=== PATIENT | male | born 1960 | race Caucasian/White ===

== ENCOUNTER 2020-05-10 11:58 | Outpatient (REF) | payer MEDICAID, SELFPAY ==
--- NOTE | 2020-05-10 12:36 | XR_ITS ---
EXAMINATION: XR CERVICAL SPINE CLINICAL INFORMATION: Cervicalgia COMPARISON: None TECHNIQUE: 5 views of the cervical spine were obtained. FINDINGS: There is no fracture or subluxation. Vertebral body height and alignment is maintained. Disc space narrowing of C5-C6 and C6-C7 with small endplate osteophytes. There appears to be mild bony neuroforaminal narrowing on the left at these levels. The atlantoaxial joint is well aligned. The dens is intact. The prevertebral soft tissues are unremarkable. The lung apices are clear. XR/XR cervical spine 4V IMPRESSION: Degenerative changes at C5-C6 and C6-C7 with associated left bony neuroforaminal narrowing at these levels.
[2020-05-10 12:59] LABS: MANUAL DIFF FLAG NO
[2020-05-10 13:10] LABS: Basophils Percent Auto 0.3 % (0-2); Eosinophils Absolute Auto 0.1 X10*3/uL (0.0-0.4); Eosinophils Percent Auto 1.3 % (0-4); Hemoglobin 14.8 g/dl (14.0-18.0); Imm Gran Abs Auto 0.03 X10*3/uL (0.00-0.03); Imm Gran Pct Auto 0.4 % (0.0-0.4); Lymphocytes Absolute Auto 2.3 X10*3/uL (1.2-4.9); Lymphocytes Percent Auto 28.4 % (20-40); Mean Corpuscular HGB Conc 33.6 g/dl (31.0-36.0); Mean Corpuscular Hemoglobin 30.7 pg (27.0-33.0); Mean Corpuscular Volume 91.3 fL (80-98); Mean Platelet Volume 11.6 fL (9.4-12.4); Monocytes Absolute Auto 0.7 X10*3/uL (0.1-1.2); Monocytes Percent Auto 9.3 % (2-11); Neutrophils Absolute Auto 4.8 X10*3/uL (2.0-8.3); Neutrophils Percent Auto 60.3 % (45-73); Platelet Count 193 X10*3/uL (160-400); Red Blood Count 4.82 X10*6/uL (4.60-5.80); Red Cell Distribution Width 12.9 % (11.0-16.0)
[2020-05-10 13:44] LABS: Alanine Aminotransferase 51 U/L (0-40); Albumin Level 4.3 g/dL (3.5-5.0); Alkaline Phosphatase 62 U/L (39-117); Anion Gap 12 (12-20); Aspartate Amino Transferase 58 U/L (5-37); Bilirubin Direct < 0.2 mg/dL (0.0-0.5); Bilirubin Total 0.5 mg/dL (0.0-1.0); Blood Urea Nitrogen 21 mg/dL (9-16); Calcium 9.3 mg/dL (8.4-10.2); Carbon Dioxide 27 mmol/L (22-29); Chloride 105 mmol/L (96-108); Cholesterol 251 mg/dL; Estimated Glomerular Filt Rate > 60; Glucose Random 93 mg/dL (60-115); HDL Cholesterol 38 mg/dL; LDL Cholesterol Calculated 136 mg/dl; Potassium 4.3 mmol/l (3.3-5.1); Sodium 140 mmol/L (135-145); Total Protein 7.3 g/dL (6.5-8.0); Triglycerides 388 mg/dL
[2020-05-10 14:01] LABS: Estimated Average Glucose 108 mg/dL; Hemoglobin A1c % 5.4 %
[2020-05-10 14:07] LABS: Thyroid Stimulating Hormone 2.54 uIU/mL (0.32-4.0)
[2020-05-11 08:04] LABS: HBS Num1 1.36 mIU/mL (0-7.99); HBc Num1 0.05 S/CO (0.00-0.79); HBsAGNum1 0.16 S/CO (0.00-0.99); HIV AB/AG Nonreactive (Nonreactive); HIV Num 1 0.12 S/CO (0.00-0.99); Hepatitis B Core Antibody Nonreactive (Nonreactive); Hepatitis B Surface Antigen Negative (Negative); ~Hepatitis B Surface Antibody NONREACTIVE (Nonreactive)
== END 2020-05-10 11:59 | disposition home or self-care (01) ==
LOC: HO.LAB 11:58
PROVIDERS: PCP Internal Medicine; Visit Provider Internal Medicine
DX: F33.1 Major depressive disorder, recurrent, moderate (principal); Z00.00 Encounter for general adult medical examination without abnormal findings; M54.2 Cervicalgia
CPT/HCPCS: 36415; 72050; 80048; 80061; 80076; 83036; 84439; 84443; 85025; 86704; 86706; 87340; 87389

== ENCOUNTER 2020-12-14 08:10 | Outpatient (REF) | payer MEDICAID, SELFPAY ==
--- NOTE | ~2020-12-14 | MR_ITS ---
MRI BRAIN WITHOUT CONTRAST CLINICAL INFORMATION: Migraine headache. COMPARISON: None available. TECHNIQUE: Multiplanar multisequence MR imaging of the brain is obtained without contrast FINDINGS: There is no hydrocephalus, extra-axial surface collection, or herniation. No parenchymal signal abnormality. The major flow voids at the skull base are preserved. There is no acute infarct on diffusion-weighted imaging. There is no intracranial hemorrhage on the gradient recalled echo acquisition. The midline structures are normal. The cerebellar tonsils are normally positioned. The cerebellum and brainstem are normal. The craniocervical junction is normal. Osseous marrow signal intensity is homogenous. The visualized soft tissues are unremarkable. There are retention cysts within the maxillary sinuses bilaterally and there is mild mucosal thickening within the ethmoid air cells bilaterally. MR/MR head/brain wo con IMPRESSION: Unremarkable noncontrast MRI of the brain.
[2020-12-14 09:42] LABS: Syphilis Screen Nonreactive (Nonreactive)
[2020-12-14 12:17] LABS: Erythrocyte Sedimentation Rate 11 MM/HR (0-15)
[2020-12-15 11:07] LABS: Lyme Abs Screen <0.90 index
[2020-12-15 23:22] LABS: Anti Nuclear Antibody Screen POSITIVE (NEGATIVE); Anti Nuclear Antibody Titer 1:40 titer
== END 2020-12-14 08:11 | disposition home or self-care (01) ==
LOC: HO.MRI 08:10
PROVIDERS: Visit Provider Psychiatry & Neurology Neurology
DX: G43.909 Migraine, unspecified, not intractable, without status migrainosus (principal)
CPT/HCPCS: 36415; 70551; 85652; 86038; 86039; 86617; 86618; 86780

== ENCOUNTER 2021-02-15 07:22 | Outpatient (REF) | payer MEDICAID, SELFPAY ==
--- NOTE | ~2021-02-15 | MR_ITS ---
EXAMINATION: MR CERVICAL SPINE WITHOUT CONTRAST CLINICAL INFORMATION: Cervicalgia. Right greater than left radiculopathy. COMPARISON: None available. TECHNIQUE: MRI of the cervical spine was performed using routine sequences without contrast. FINDINGS: The cervical vertebral bodies maintain normal heights and alignment. There is advanced disc height loss at C5-C6 and C6-C7 with degenerative endplate changes edema is seen across the C6-C7 endplates. The cervical cord signal appears normal. The imaged portions of the intracranial contents and extraspinal soft tissues appear normal. SPINAL LEVELS: C2-C3: No posterior disc abnormality. No spinal canal or neural foraminal stenosis. C3-C4: Disc bulging with left uncovertebral hypertrophy and moderate to severe left facet arthropathy resulting in moderate to severe left neural foraminal stenosis. No spinal canal stenosis. C4-C5: No posterior disc abnormality. Left uncovertebral hypertrophy and mild left facet arthropathy resulting in moderate left neural foraminal stenosis. C5-C6: Disc osteophyte complex with left paracentral protrusion causing mild spinal canal stenosis. Uncovertebral hypertrophy and mild facet arthropathy results in severe bilateral neural foraminal stenosis, asymmetrically worse on the left. C6-C7: Disc osteophyte complex causing mild spinal canal stenosis. Uncovertebral hypertrophy and mild facet arthropathy results in severe bilateral neural foraminal stenosis. C7-T1: No posterior disc abnormality. No spinal canal or neural foraminal stenosis. MR/MR cervical spine wo con IMPRESSION: At C5-C6 there is advanced disc height loss, mild spinal canal stenosis, and severe bilateral neural foraminal stenosis. At C6-C7 there is advanced disc height loss, subchondral marrow edema, mild spinal canal stenosis, and severe bilateral neural foraminal stenosis. Neural foraminal stenosis appears moderate to severe on the left at C3-C4 and moderate on the left at C4-C5.
== END 2021-02-15 07:23 | disposition home or self-care (01) ==
LOC: HO.MRI 07:22
PROVIDERS: Visit Provider Family Medicine
DX: M54.2 Cervicalgia (principal)
CPT/HCPCS: 72141

== ENCOUNTER 2021-07-05 07:00 | Outpatient (RCR) | payer MEDICAID, SELFPAY | END 2021-07-05 12:23 | disposition home or self-care (01) | LOC: HO.PTWFD 07:00 | PROVIDERS: PCP Internal Medicine; Visit Provider Family Medicine | DX: M54.2 Cervicalgia (principal) | CPT/HCPCS: 97012; 97110; 97140; 97162; 97535 ==

== ENCOUNTER 2021-09-01 09:38 | Outpatient (REF) | payer MEDICAID, SELFPAY ==
--- NOTE | ~2021-09-01 | XR_ITS ---
EXAMINATION: XR KNEES AP STANDING, BILATERAL XR KNEE, RIGHT CLINICAL INFORMATION: Right knee pain. COMPARISON: None. TECHNIQUE: Standing AP view of both knees and lateral and sunrise views of the right knee. FINDINGS: RIGHT KNEE: Mild medial compartment joint space narrowing. Small medial and patellofemoral compartment marginal osteophytes. No osseous erosion. No fracture or dislocation. No abnormal soft tissue calcification. No significant joint effusion. LEFT KNEE: Mild medial compartment joint space narrowing with tiny marginal osteophytes. No osseous erosion. No fracture or dislocation. No abnormal soft tissue calcification. XR/XR knee standing BI IMPRESSION: RIGHT KNEE: Mild medial and patellofemoral compartment osteoarthritis. LEFT KNEE: Mild medial compartment osteoarthritis.
--- NOTE | ~2021-09-01 | XR_ITS ---
EXAMINATION: XR KNEES AP STANDING, BILATERAL XR KNEE, RIGHT CLINICAL INFORMATION: Right knee pain. COMPARISON: None. TECHNIQUE: Standing AP view of both knees and lateral and sunrise views of the right knee. FINDINGS: RIGHT KNEE: Mild medial compartment joint space narrowing. Small medial and patellofemoral compartment marginal osteophytes. No osseous erosion. No fracture or dislocation. No abnormal soft tissue calcification. No significant joint effusion. LEFT KNEE: Mild medial compartment joint space narrowing with tiny marginal osteophytes. No osseous erosion. No fracture or dislocation. No abnormal soft tissue calcification. XR/XR knee RT 2V IMPRESSION: RIGHT KNEE: Mild medial and patellofemoral compartment osteoarthritis. LEFT KNEE: Mild medial compartment osteoarthritis.
== END 2021-09-01 09:39 | disposition home or self-care (01) ==
LOC: HO.HOSX 09:38
PROVIDERS: Visit Provider Orthopaedic Surgery
DX: M71.21 Synovial cyst of popliteal space [Baker], right knee (principal); M65.4 Radial styloid tenosynovitis [de Quervain]
CPT/HCPCS: 20605; 73560; 73565; 99202; J1100

== ENCOUNTER 2021-09-19 09:03 | Outpatient (REF) | payer MEDICAID, SELFPAY ==
--- NOTE | ~2021-09-19 | XR_ITS ---
EXAMINATION: XR HAND, LEFT CLINICAL INFORMATION: Pain left hand. COMPARISON: None TECHNIQUE: PA, lateral, and oblique views of the left hand. FINDINGS: There is mild loss of first carpometacarpal joint space with small enthesophyte. The first metacarpophalangeal joint appears unremarkable. Rest of the PIP and DIP joints and MCP joints are normal. No visible fracture or dislocation seen. The soft tissues are normal. XR/XR hand LT min 3V IMPRESSION: Mild degenerative changes first carpometacarpal joint space. No visible acute fracture or dislocation.
== END 2021-09-19 09:04 | disposition home or self-care (01) ==
LOC: HO.HOSX 09:03
PROVIDERS: Visit Provider Orthopaedic Surgery
DX: M79.642 Pain in left hand (principal); M65.4 Radial styloid tenosynovitis [de Quervain]
CPT/HCPCS: 73130; 99202

== ENCOUNTER → 2022-04-24 08:49 | Outpatient (BNVA) | payer MEDICAID, SELFPAY | PROVIDERS: PCP Internal Medicine; Visit Provider Orthopaedic Surgery | DX: M65.4 Radial styloid tenosynovitis [de Quervain] (principal); M18.12 Unilateral primary osteoarthritis of first carpometacarpal joint, left hand | CPT/HCPCS: 99212; J1020 ==

== ENCOUNTER 2022-09-26 14:29 | Outpatient (REF) | payer MEDICAID, SELFPAY ==
--- NOTE | ~2022-09-26 | XR_ITS ---
EXAMINATION: XR HAND, LEFT CLINICAL INFORMATION: Hand pain COMPARISON: Hand radiographs 09/19/2022 TECHNIQUE: Three views of the left hand. FINDINGS: Technically limited views of the hand and digits are overlapping on all obtained views and the digits are in flexion on the PA view, repeat radiographs should be considered as warranted. No definite acute fracture or dislocation on the limited obtained views. Mild degenerative changes of the first carpometacarpal joint and first interphalangeal joint with small osteophytes slightly progressed from prior. Soft tissues are unremarkable. XR/XR hand LT min 3V IMPRESSION: 1. Technically limited views of the hand and digits are overlapping on all obtained views and the digits are in flexion on the PA view, repeat radiographs should be considered as warranted. No definite acute fracture or dislocation on the limited obtained views. 2. Mild degenerative changes of the first carpometacarpal joint and first interphalangeal joint with small osteophytes.
== END 2022-09-26 14:30 | disposition home or self-care (01) ==
LOC: HO.HOSX 14:29
PROVIDERS: PCP Internal Medicine; Visit Provider Orthopaedic Surgery
DX: M18.12 Unilateral primary osteoarthritis of first carpometacarpal joint, left hand (principal); M65.4 Radial styloid tenosynovitis [de Quervain]
CPT/HCPCS: 73130; 99212

== ENCOUNTER → 2022-10-16 08:47 | Outpatient (BNVA) | payer MEDICAID, SELFPAY | PROVIDERS: PCP Internal Medicine; Visit Provider Orthopaedic Surgery | DX: M65.4 Radial styloid tenosynovitis [de Quervain] (principal); M18.12 Unilateral primary osteoarthritis of first carpometacarpal joint, left hand | CPT/HCPCS: 20600; 20605; 99212; J1020 ==

== ENCOUNTER 2023-09-25 14:50 | Outpatient (AMB) | payer MEDICAID, SELFPAY ==
--- NOTE | 2023-09-25 14:52 | A.OFFVIS_ITS ---
Intake Intake Visit Reasons: OV-left basal joint injection-last inj. 10/14/22 Intake Note: Pt presents to the office today for a left basal joint injection. Pt states his last injection was 10/14/22. Pt states he has extreme pain in his thumb. Allergies epinephrine Allergy (Verified 09/25/23 14:52) Palpitations HPI OV-left basal joint injection-last inj. 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 He has a hx of relief from steroid injections in the past, his last injection was done on 10/16/22, with good relief. He would like to repeat this injection today. He states the symptoms are the same as previously. He also reports newer pain at the base of his right thumb, and is concerned he is developing arthritis there as well. He also reports that he gets pretty depressed about going to work and that he has pain in his hands and is back in his neck when going to work. He is seeing somebody for his depression. 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 No thenar or intrinsic wasting Cap refill brisk. Can bring fingers closed to a fist and back out to full extension. He is most tender over the basal joint of the left thumb Positive CMC grind on the left Good active thumb ROM bilaterally No locking or catching. Radiographs: 3 views of the right hand, with attention to the thumb, were taken and viewed by me today in clinic. They show no fractures or dislocations. There is some basal joint arthritis, with osteophyte formation, subluxation, and joint space narrowing Psych Appearance: grossly normal Affect: normal affect Attitude: cooperative Office Procedures Fracture Care Details: No fracture, injection Fracture Billing Code: Fracture Billing Code Assessment & Plan Assessment & Plan (1) Arthritis of carpometacarpal (CMC) joint of left thumb: Code(s): M18.12 - Unilateral primary osteoarthritis of first carpometacarpal joint, left hand (2) Numbness and tingling in left hand: Code(s): R20.0 - Anesthesia of skin; R20.2 - Paresthesia of skin (3) Neck pain: Code(s): M54.2 - Cervicalgia (4) Osteoarthritis of carpometacarpal (CMC) joint of right thumb: Code(s): M18.11 - Unilateral primary osteoarthritis of first carpometacarpal joint, right hand Plan Assessment and plan: 1. Left basal joint Osteoarthritis, S/P injection Date of Injections: 10/16/22, 04/24/22 I educated him about this condition. I recommend a repeat steroid injection, and he is in agreement. We did discuss operative and non operative treatment options. He understands that surgery for this condition would mean that he would not be allowed to pinch against his thumb for about 3 months and probably be out of work for about 4 months He complains of pain in the bases of both thumbs as well as his leg and then also in his neck, and that these issues are aggravated with his work-related activities. I discussed activity modification, he should minimize any heavy or repetitive pinching, gripping, or lifting activities when possible. 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 He also notes that he has some depression, and is now seeing somebody for this. He was fitted for a new thumb spica splint with daily activity, when symptomatic Injection #1 : The risks and benefits of a steroid injection including but not limited to risk of damage to blood vessels, nerve, tendon, infection, skin bleaching, persistent or worsening pain, and failure to improve symptoms were discussed with the patient and they wish to proceed with the steroid injection. Once consent was obtained the skin over the dorsum of the left basal joint was sterilely prepped. The joint was then injected with a combination of 1 mL of (40 mg/ml} Depo-Medrol and 1% plain Lidocaine. The patient appears to have tolerated the procedure well and with no complications. He had good early relief before leaving clinic today. He knows that they may not have another steroid injection into this joint for least 4 months. Of note, his basal joint is a little harder to feel, though I do feel like it went into the joint well. If he feels this injection did not work well for him, then I would schedule the next injection with the mini C-arm for needle guid ance. 2. Right Basal joint pain Radiographs ordered today He was fitted for a neoprene thumb spica splint to wear with daily activity, when symptomatic He will make an appointment to follow up for evaluation and a possible steroid injection, next available appointment 3. Neck pain Patient reports C-spine stenosis I referred him to Pain Management for assessment 4. Left de Quervain tenosynovitis, S/P injection by Dr. Simons Date of injection: 09/01/21 Negative Eduardo test No complaints today 5. Left hand numbness In the median nerve distribution No complaints today Scribed for Cha Ireland MD by Liam Reyes, medical imaging technician, on 09/25/23 at 3:00 PM, EST. Orders: Orders XR hand RT min 3V Today M79.641 - Pain in right hand Referrals Pain Management Referral M54.2 - Cervicalgia Coding Level of Care Code Est Pt Level 3 (32084) Diagnoses Arthritis of carpometacarpal (CMC) joint of left thumb M18.12 Numbness and tingling in left hand R20.0; R20.2 Neck pain M54.2 Osteoarthritis of carpometacarpal (CMC) joint of right thumb M18.11 CPT Codes Fracture Care - Fracture Billing Code: Fracture Billing Code ([id number])
== END 2023-09-25 15:41 | disposition home or self-care (01) ==
LOC: HO.HOS 14:50
PROVIDERS: PCP Internal Medicine; Visit Provider Orthopaedic Surgery
DX: M18.0 Bilateral primary osteoarthritis of first carpometacarpal joints (principal); R20.0 Anesthesia of skin; R20.2 Paresthesia of skin; M54.2 Cervicalgia
CPT/HCPCS: 20610; 99213

== ENCOUNTER 2023-09-25 14:50 | Outpatient (REF) | payer MEDICAID, SELFPAY ==
--- NOTE | ~2023-09-25 | XR_ITS ---
EXAMINATION: XR HAND, RIGHT CLINICAL INFORMATION: Pain COMPARISON: None TECHNIQUE: 3 views of the hand FINDINGS: No fracture or dislocation. Mild osteoarthritis at the first metacarpophalangeal joint with borderline loss of joint space. No cortical erosion. Soft tissues are unremarkable. XR/XR hand RT min 3V IMPRESSION: Mild osteoarthritis at the first metacarpophalangeal joint.
== END 2023-09-25 14:51 | disposition home or self-care (01) ==
LOC: HO.HOSX 14:50
PROVIDERS: PCP Internal Medicine; Visit Provider Orthopaedic Surgery
DX: M18.0 Bilateral primary osteoarthritis of first carpometacarpal joints (principal); R20.0 Anesthesia of skin; R20.2 Paresthesia of skin; M54.2 Cervicalgia
CPT/HCPCS: 20610; 73130; 99212; J1010; J1020

== ENCOUNTER 2023-11-27 09:18 | Outpatient (AMB) | payer MEDICAID, SELFPAY ==
--- NOTE | 2023-11-27 09:19 | A.OFFVIS_ITS ---
Vital Signs 11/27/23 09:21 Height 5 ft 10 in Weight 185 lb BMI 26.5 Intake Visit Reasons: new prob-Rt hand rai Intake Note: Ru 63 yr old right hand dominant male presents today for a new problem visit for his right hand basal joint pain. 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 Hx of left basal hand basal injection on 09/24/24 Patient reports that he has had pain in bilateral thumb for quote some time now. He has had history of cortisone injections which are helpful . 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 He has a hx of multiple left basal joint injections in the past, his last injection was done on 09/25/23, with good relief. He complains of pain at the base of his right thumb, worse with pinching or gripping activities. 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 He says he has pain in both his hands all the time . he also has pain in the thenar aspect of his hand, and he also kathryn a leeann at the ulnar proximal phalanx level of the thumb, where his scissors rub and cause him pain. He says he was recently diagnosed with epiretinal membrane of his right eye. This has caused blurry & affected vision. He has an appointment with an Regional Climate Change Analyst on 12/31/23. He also reports that he gets pretty depressed about going to work and that he has pain in his hands and is back in his neck when going to work. He is seeing somebody for his depression. 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 Review of Systems Const All systems reviewed & are unremarkable except as noted in HPI and below Physical Exam Vital Signs: BMI result Body Mass Index 26.5 Const General: no acute distress and alert Orientation/consciousness: patient oriented x3 HEENT Head: Yes normocephalic and Yes atraumatic Neuro General: patient oriented x3 Extrem Other: Evaluation of Right Upper Extremity: The patient is alert, oriented, and in no acute distress Neuro: Median, Ulnar, Radial nerves motor and sensory intact and sensation is normal to the tips of all digits Vascular: Cap refill brisk ROM: He can make a fist and extend all his digits No locking or catching Most tender over the right basal joint Pos shoulder sign Pos CMC grind Not particularly tender over the a1 mira No soft tissue mass in the ulnar proximal phalanx level of his thumb, where his scissors rub. Mild tenderness in the soft tissue or skin. No callus. Radiographs: 3 views of the right hand, with attention to the thumb, were taken and viewed by me today in clinic. They show no fractures or dislocations. There is some early basal joint arthritis, with osteophyte formation, subluxation, and joint space narrowing Psych Appearance: grossly normal Affect: normal affect Attitude: cooperative Office Procedures Fracture Care Details: No fracture, injection Fracture Billing Code: Fracture Billing Code Assessment & Plan Assessment & Plan (1) Osteoarthritis of carpometacarpal (CMC) joint of right thumb: Code(s): M18.11 - Unilateral primary osteoarthritis of first carpometacarpal joint, right hand Category: Medical (2) Arthritis of carpometacarpal (CMC) joint of left thumb: Code(s): M18.12 - Unilateral primary osteoarthritis of first carpometacarpal joint, left hand Category: Medical (3) Numbness and tingling in left hand: Code(s): R20.0 - Anesthesia of skin; R20.2 - Paresthesia of skin Category: Medical (4) Neck pain: Code(s): M54.2 - Cervicalgia Category: Medical Plan Assessment and plan: 1. Right Basal joint OA I educated him about this condition. I recommend a steroid injection, and he is in agreement. He will continue to wear his comfort cool brace with daily activity I discussed activity modification, he should minimize any heavy or repetitive pinching, gripping, or lifting activities when possible. 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 He also notes that he has some depression, and is now seeing somebody for this. Injection #1: The risks and benefits of a steroid injection including but not limited to risk of damage to blood vessels, nerves, tendons, infection, skin bleaching, failure to improve symptoms, increased pain, and possible need for further injections or other intervention were discussed with the patient and the patient wishes to proceed with the steroid injection. Once consent was obtained, I sterilely prepped the area over the 1st dorsal compartment of the Right thumb. I then injected the 1st dorsal compartment with a combination of 1 mL of dexamethasone (4mg/ml), and 1% lidocaine. The patient tolerated the procedure well with no complications and good resolution of their symptoms prior to leaving clinic. If the patient continues to have pain 6-8 weeks following this injection, they may call to schedule appointment to discuss alternative treatment options He will follow up prn 2. Left basal joint Osteoarthritis, S/P injection Date of Injections: 09/27/23, 10/16/22, 04/24/22 We did discuss operative and non operative treatment options. He understands that surgery for this condition would mean that he would not be allowed to pinch against his thumb for about 3 months and probably be out of work for about 4 months 3. Neck pain Patient reports C-spine stenosis I referred him to Pain Management for assessment 4. Left de Quervain tenosynovitis, S/P injection by Dr. Simons Date of injection: 09/01/21 Negative Eduardo test No complaints today 5. Left hand numbness In the median nerve distribution No complaints today Scribed for Cha Ireland MD by Liam Reyes, certified medical coding specialist, on 11/27/23 at 9:30 AM, EST. Scribe Plan - Not visible on output: Scribed for Cha Ireland MD by Liam Reyes certified medical coding specialist, on [ ] at [ ], EST. Coding Level of Care Code Est Pt Level 3 (38367) Diagnoses Osteoarthritis of carpometacarpal (CMC) joint of right thumb M18.11 Arthritis of carpometacarpal (CMC) joint of left thumb M18.12 Numbness and tingling in left hand R20.0; R20.2 Neck pain M54.2 CPT Codes Fracture Care - Fracture Billing Code: Fracture Billing Code ([id number])
[2023-11-27 09:21] VITALS: BMI 26.5
== END 2023-11-27 16:09 | disposition home or self-care (01) ==
PROVIDERS: PCP Internal Medicine; Visit Provider Orthopaedic Surgery
DX: M18.0 Bilateral primary osteoarthritis of first carpometacarpal joints (principal); R20.0 Anesthesia of skin; R20.2 Paresthesia of skin; M54.2 Cervicalgia
CPT/HCPCS: 20600; 99213

== ENCOUNTER → 2023-11-27 09:18 | Outpatient (BNVA) | payer MEDICAID, SELFPAY | PROVIDERS: PCP Internal Medicine; Visit Provider Orthopaedic Surgery | DX: M18.0 Bilateral primary osteoarthritis of first carpometacarpal joints (principal); M54.2 Cervicalgia; R20.0 Anesthesia of skin; R20.2 Paresthesia of skin | CPT/HCPCS: 20600; 99212; J1010 ==

== ENCOUNTER 2024-12-18 04:00 | Emergency (ER) | payer MEDICAID, SELFPAY ==
[2024-12-18 04:07] VITALS: BP 136/66; PULSE 62; RESP 16; TEMP 36.1; O2SAT 98; BMI 28.1
--- OUTSIDE RECORDS SUMMARY | 2024-12-18 04:48 | XMS_ITS | Clinical Summary ---
Author Organization [facility] Address [address] [place] [address] Phone Care Team Providers Care Technical Support Manager Name Role Phone Ellen Topete MD Primary Care Provide r Allergies No known active allergies Medications No known medications Social History Tobacco Use Types Packs/Day Years Used Date Smoking Tobacco: Never Assessed Sex and Gender Information Value Date Recorded Sex Assigned at Not on file Legal Sex Male 1:39 AM EST Gender Identity Not on file Sexual Orientation Not on file Last Filed Vital Signs Vital Sign Reading Time Taken Comments Blood Pressure 122/68 07/15/2024 8:01 PM EST Pulse 110 07/15/2024 8:01 PM EST Temperature 37.4 C (99.4 F) 07/15/2024 8:01 PM EST Respiratory Rate 15 07/15/2024 2:40 PM EST Oxygen Saturation 99% 07/15/2024 8:01 PM EST Inhaled Oxygen Concentration - - Weight 83.9 kg (185 lb) 07/15/2024 2:40 PM EST Height 175.3 cm (5' 9 ) 07/15/2024 2:40 PM EST Body Mass Index 27.32 07/15/2024 2:40 PM EST Plan of Treatment Health Maintenance Due Date Last Done Comments DTaP,Tdap,and Td Vaccines (1 - Tdap) 10/30/1979 Pneumococcal Vaccine: 50+ Years (1 of 1 - PCV) 2010 Zoster Vaccines (1 of 2) 2010 COVID-19 Vaccine (3 - 2023-2 5 season) 2024 08/30/2020, 08/09/2020 Cholesterol Screening (Lipid Panel) 07/16/2024 HIV Screening 07/16/2024 Hepatitis C Screening 07/16/2024 Social Influencers of Health Screening 07/16/2024 Depression Screening 12/30/2024 12/31/2023 Influenza Vaccine (Season Ended) 2025 Colorectal Cancer Screening: FIT-DNA (Cologuard) 03/13/2026 03/13/2023 RSV Immunization Adult Patients (1 - 1-dose 75+ series) 10/30/2035 HIB Vaccines Aged Out No longer eligi ble based on patient's age to complete this topic HPV Vaccines Aged Out No longer eligi ble based on patient's age to complete this topic Hepatitis A Vaccines Aged Out No long er eligible based on patient's age to complete this topic Hepatitis B Vaccines Aged Out No long er eligible based on patient's age to complete this topic IPV Vaccines Aged Out No longer eligi ble based on patient's age to complete this topic MMR Vaccines Aged Out No longer eligi ble based on patient's age to complete this topic Meningococcal ACWY Vaccine Aged Out N o longer eligible based on patient's age to complete this topic Meningococcal B Vaccine Aged Out No l onger eligible based on patient's age to complete this topic Pneumococcal Vaccine: Pediatrics (0 to 5 Years) and At-Risk Patients (6 to 64 Years) Aged Out No longer eligible b ased on patient's age to complete this topic RSV Immunization Patients Under 20 months Aged Out No longer eligible b ased on patient's age to complete this topic Varicella Vaccines Aged Out No longer eligible based on patient's age to complete this topic Insurance MEDICAID - [place] Care Teams Technical Support Manager Relationship Specialty Start Date End Date Ellen Topete MD [address] [place] [phone] PCP - General 09/11/23
--- NOTE | 2024-12-18 05:28 | ED.BACK ---
HPI - Back Pain/Injury General Chief Complaint: Back Pain/Injury Stated Complaint: lower back pain Time Seen by Provider: 12/18/24 05:19 Source: patient Mode of arrival: ambulatory Limitations: no limitations History of Present Illness ED Provider: Dr. Vashti Back HPI Narrative: Patient comes to the emergency room complaining of lower back pain for 2 weeks radiating towards the right lower extremity. Patient states that he was helping his parents move out of the house and he has been lifting heavy boxes. Patient denies any obvious trauma. Denies numbness tingling. Patient denies any urinary/fecal incontinence/retention. Patient is able to walk but hurts doing so. Denies any muscle weakness. Related Data Home Medications ?Medication ?Instructions ?Recorded ?Confirmed duloxetine 20 mg capsule,delayed 20 mg PO BID 09/01/21 release (Cymbalta) amitriptyline 50 mg tablet 50 mg PO BEDTIME 09/19/21 duloxetine 30 mg capsule,delayed 30 mg PO BID 09/19/21 release amitriptyline 25 mg tablet 25 mg PO BEDTIME 04/24/22 aripiprazole 10 mg tablet 10 mg PO BEDTIME 04/24/22 cyclobenzaprine 10 mg tablet 10 mg PO TID 04/24/22 ibuprofen 400 mg tablet 400 mg PO Q4-6H PRN 04/24/22 Previous Rx's ?Medication ?Instructions ?Recorded cyclobenzaprine 5 mg tablet 10 mg (2 x 5 mg) PO TID PRN muscle 12/18/24 spasm #10 tabs tramadol 50 mg tablet 50 mg PO BID PRN pain #8 tabs 12/18/24 Allergies Allergy/AdvReac Type Severity Reaction Status Date / Time epinephrine Allergy Palpitation Verified 12/18/24 04:11 s Review of Systems Review of Systems: Constitutional : No Weight loss, No Fever, No Chills, No Night Sweats, No Fatigue, No Malaise ENT/Mouth : No Hearing loss, No Ear Pain, No Nasal Congestion, No Sinus Pain, No Hoarseness, No sore throat, No Rhinorrhea, No Swallowing Difficulty Eyes: No Eye Pain, No Swelling, No Redness, No Foreign Body, No Discharge, No Vision Changes Cardiovascular : No Chest Pain, No SOB, No Dyspnea on Exertion, No Orthopnea, No Edema, No Palpitations Respiratory : No Cough, No Sputum, No Wheezing, No Smoke Exposure, No Dyspnea Gastrointestinal : No Nausea, No Vomiting, No Diarrhea, No Constipation, No abdominal Pain, No Hematochezia, No Melena Genitourinary : no irregular bleeding, No Dysuria, No Urinary Frequency, No Hematuria, No Urinary Incontinence, No Urgency, No Flank Pain, No Urinary Flow Changes, No Hesitancy Back: Complaining of lower back pain radiating towards the right lower extremity with certain movements, relieved by rest Musculoskeletal : No joint pain, No Myalgias, No Joint Swelling Skin : No Skin Lesions, No rash Neuro : No Weakness, No Numbness, No Paresthesias, No Loss of Consciousness, No Dizziness, No Headache Psych : No Anxiety/Panic, No Depression, No SI/HI/AH/VH, No Social Issues, Heme/Lymph: No Bruising, No Bleeding,No Lymphadenopathy Endocrine : No Polyuria, No Polydipsia, No Temperature Intolerance PMFSH Past Medical History Medical History Bakers cyst Hx of spinal stenosis Social History Social History Advance Directives: No Advance Directives Information Provided: Yes Do you have a plan to hurt others: No Plan Current occupational status: employed 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 Oriented X3. No acute distress. Eyes: Pupils equal, round and reactive to light. ENT: Pharynx normal. Neck: Normal inspection. Neck supple. No lymph nodes noted. No crepitus CVS: Normal heart rate and rhythm. Pulses normal. Normal S1 and S2 Respiratory: No respiratory distress. Breath sounds normal. No Wheezing. No rales Abdomen: Soft and nontender. No rigidity. No distention. Back: No pain to palpation over the lumbar area or thoracic spine. Patient has a positive straight leg raise test on the right, negative on the left Skin: Skin warm and dry. Normal skin color. Normal skin turgor. Extremities: No lower extremity edema. No Lacerations. No Rash Neuro: Oriented X 3. No motor deficit. No sensory deficit. Moving all extremities. No slurred speech. CN 2 through 12 grossly intact Psych: calm, cooperative, normal affect Course Course Course Narrative: Patient comes in complaining of lower back pain radiating towards the left leg. Denies any neurological symptoms along with the pain. Medical Decision Making Medical Decision Making [facility] Narrative: I discussed the physical exam with the patient. Patient likely has sciatica versus herniated disc. No signs of cauda equina Patient was given a dose of IM Dilaudid and Decadron. Discussed with the patient that the definitive treatment is physical therapy. Patient eventually may need an MRI. Patient agrees with plan. This time, imaging is not indicated. Patient was instructed to follow-up with his primary care physician. As he may need a referral for PT Discharge Plan Discharge Clinical Impression: Sciatica Patient Disposition: Home, Self-Care Instructions: Sciatica (ED) Additional Instructions: Please follow-up with your primary care physician tomorrow. If you have any worsening or new symptoms, please return to the emergency room or call 911 Prescriptions: New cyclobenzaprine 5 mg tablet 10 mg PO TID PRN (Reason: muscle spasm) Qty: 10 0RF tramadol 50 mg tablet 50 mg PO BID PRN (Reason: pain) Qty: 8 0RF Rx Instructions: Do not take this medication at the same time that you take cyclobenzaprine No Action amitriptyline 50 mg tablet 50 mg PO BEDTIME duloxetine 30 mg capsule,delayed release(DR/EC) 30 mg PO BID duloxetine [Cymbalta] 20 mg capsule,delayed release(DR/EC) 20 mg PO BID aripiprazole 10 mg tablet 10 mg PO BEDTIME ibuprofen 400 mg tablet 400 mg PO Q4-6H PRN cyclobenzaprine 10 mg tablet 10 mg PO TID amitriptyline 25 mg tablet 25 mg PO BEDTIME Print Language: German
[2024-12-18] MEDS: dexAMETHasone sod phosphate 4 MG/ML VIAL IM (05:51)
[2024-12-18] MEDS: HYDROmorphone HCl 1 MG/ML SYRINGE IM (05:51)
[2024-12-18 06:09] VITALS: BP 141/83; PULSE 68; RESP 18; TEMP 35.8; O2SAT 97
[2024-12-18 06:22] VITALS: BP 141/83; PULSE 68; RESP 18; TEMP 35.8; O2SAT 97
== END 2024-12-18 06:22 | disposition home or self-care (01) ==
PROVIDERS: Emergency Provider Emergency Medicine; PCP Internal Medicine
DX: M54.41 Lumbago with sciatica, right side (principal); Z79.899 Other long term (current) drug therapy
CPT/HCPCS: 96372; 99283; 99284; J1100; J1171